=== PATIENT | male | born 1975 | race Caucasian/White ===

== ENCOUNTER 2016-12-17 18:28 | Emergency (ER) | payer BC, OTHER ==
[2016-12-17 19:26] VITALS: BMI 26.7
[2016-12-17 19:49] LABS: AUTOMATED BASOPHIL 0.5 % (0-2); AUTOMATED EOSINOPHIL 0.4 % (0-5); AUTOMATED LYMPH 13.3 % (17-44); AUTOMATED MONOCYTE 16.1 % (3-10); AUTOMATED NEUTROPHIL 69.7 % (45-76); MPV 8.6 fL (7.4-10.4)
[2016-12-17 19:56] LABS: LEUKOCYTES/URINE NEG (NEGATIVE); NITRITE/URINE NEG (NEGATIVE); URINE OCCULT BLOOD NEG (NEG/TRACE); WBC/URINE 0-2 (0-2)
[2016-12-17 20:02] LABS: BLOOD UREA NITROGEN 12 MG/DL (9-20); CALC CORRECTED 9.6 MG/DL (8.4-10.2); CALCIUM 9.4 MG/DL (8.4-10.2); CALCULATED OSMOLALITY 275 MOs/Kg (270-290); CHLORIDE 104 mEq/L (98-107); GLUCOSE 341 MG/DL (70-99); SODIUM LEVEL 136 mEq/L (137-146); TOTAL PROTEIN 7.2 G/DL (6.3-8.2)
[2016-12-17 20:06] LABS: PARTIAL THROMB. TIME 27.5 SEC (22-35); PT-INR 1.1
--- NOTE | 2016-12-17 20:10 | DIRPT ---
CLINICAL DATA: Cough and fever EXAM: CHEST 2 VIEW COMPARISON: May 16, 2015 FINDINGS: There is no edema or consolidation. Heart size and pulmonary vascularity are normal. No adenopathy. No bone lesions. IMPRESSION: No edema or consolidation. Electronically Signed By: Tano Barnes III, M.D. On: 12/17/2016 20:07
--- NOTE | 2016-12-17 20:28 | EDPRACDOC ---
- General Information Chief Complaint: Nausea,Vomiting,Diarrhea Stated Complaint: FEVER Time Seen by Provider: 12/17/16 20:08 Information Source: Patient Mode Of Arrival: Car Home Medications: Home Medications Levothyroxine Sodium [Synthroid] 50 mcg PO QAM 11/03/13 Tacrolimus [Prograf] 3 mg PO QHS 11/03/13 Tacrolimus [Prograf] 4 mg PO QAM 11/03/13 Insulin Glargine,Hum.rec.anlog [Lantus] 8 - 9 units SQ QHS 05/15/15 Insulin Aspart [Novolog] 0 units SQ .SLIDING SCALE PRN 12/17/16 Lipase/Protease/Amylase [Katja Myers 12,000 Units Capsule] 1 cap PO TIDAC 12/17/16 Allergies/Adverse Reactions: Allergies Allergy/AdvReac Type Severity Reaction Status Date / Time codeine Allergy Nausea only Verified 07/27/15 22:30 gatifloxacin [From Tequin] Allergy Unknown Verified 07/27/15 22:30 metoclopramide HCl Allergy See Verified 07/27/15 22:30 [From Reglan] Comments - History of Present Illness Onset: 2 days HPI: PT WITH N/V, X 10, FEVER 102.6 TODAY ABOUT 1730. COUGH PRODUCTIVE. HAD BEEN TAKING TYLENOL. GOT A DOSE OF MOTRIN. H/O KIDNEY/PANCREAS TRANSPLANT DELACRUZ 2002. TOLD TO COME FOR EVAL BY PHARMACY BENEFIT MANAGER. CHEST PAIN WITH COUGH. SOB, DIZZY. Symptoms Occured: Reports: Spontaneous ED Past Medical History - Patient Medical History Psychological History: Denies: Depression Systemic History: Reports: Diabetes Surgical History: Reports: Other (renal/pancreatic transplant 2002) - Social Medical History Smoking Status: Never smoker EDM Review of Systems - Review of Systems ROS Negative Except as Marked: Yes All systems reviewed and were negative except as marked Constitutional: No Symptoms Reported - Physical Exam Constitutional: Alert (Awake), No apparent distress Oriented to: Time, Person, Place Last recorded Vital Signs: Last Vital Signs Temp 100 F 12/17/16 20:08 Pulse 86 12/17/16 20:04 Resp 20 12/17/16 20:04 BP 116/66 12/17/16 20:04 Pulse Ox 95 12/17/16 20:04 Oxygen Pulse Oxygen Saturation 95 O2 Device Room Air Oxygen Flow Rate Fraction of Inspired Oxygen ( FIO2) - HEENT Head: Normal ( normocephalic) Eye Exam: Normal (PERRL, EOMI, Sclera white), Other (LEFT EYE BLIND) Oropharynx: Normal (Pharynx:Moist without exudate,Gums-no swelling) Nose: No Symptoms Reported (septum midline) Neck: Normal (FROM, trachea at midline) - Respiratory/Cardiovascular Respiratory: Normal - CTA (BBS clear to auscultation without adventitious sounds ) Cardiovascular: Normal (RRR without murmur, gallop or rub) - GI Auscultation: Normal (NABS) Palpation: Normal (Soft,No rebound or guarding, non distended) Tenderness: Non tender Venegas's Sign: Negative - Musculoskeletal Back: Normal (Non-Tender) Extremities: Normal (Normal tone, Pulses 2+ No cyanosis or edema, FROM) - Integumentary Skin: Hot, Diaphoretic. negative: Rash, Mottling, Petechiae Lymphatics: Normal (no adenopathy) - Neurologic Memory Impaired: Normal Motor Function: Normal (Normal tone, Pulses 2+ No cyanosis or edema, FROM) Cranial Nerve: Normal (CN II-X11 intact sensation, strength 5/5) Cerebellar: Normal Mood Description: Normal Perception: Normal - Results 12/17/16 19:28 12/17/16 19: WBC 7.0 xk/uL (3.8-10.8) 12/17/16 19: RBC 4.76 xM/uL (4.70-6.10) 12/17/16 19: Hgb 14.7 g/dL (14.0-18.0) 12/17/16 19: Hct 42.9 % (42-52) 12/17/16 19: MCV 90 fL (80-94) 12/17/16 19: MCH 30.9 pg (27-32) 12/17/16 19: MCHC 34.2 g/dl (33-36) 12/17/16 19: RDW 13.0 % (11.5-14.5) 12/17/16 19: Plt Count 296 xk/uL (130-400) 12/17/16 19: MPV 8.6 fL (7.4-10.4) 12/17/16 19: Neut % (Auto) 69.7 % (45-76) 12/17/16 19:28 Lymph % (Auto) 13.3 % (17-44) L 12/17/16 19:28 [place] % (Auto) 16.1 % (3-10) H 12/17/16 19:28 Eos % (Auto) 0.4 % (0-5) 12/17/16 19: Baso % (Auto) 0.5 % (0-2) 12/17/16 19: Absolute Neuts (auto) 4.83 xk/uL (1.7-8.2) 12/17/16 19: Absolute Lymphs (auto) 0.91 xk/uL (0.65-4.75) 12/17/16 19: PT 11.3 SEC (9.2-11.2) H 12/17/16 19: INR 1.1 12/17/16 19:28 APTT 27.5 SEC (22-35) 12/17/16 19:28 Sodium 136 mEq/L (137-146) L 12/17/16 19:28 Potassium 4.0 mEq/L (3.5-5.1) 12/17/16 19: Chloride 104 mEq/L (98-107) 12/17/16 19:28 Carbon Dioxide 17 mMOL/L (22-33) L 12/17/16 19:28 Anion Gap 19 mEq/L (8-16) H 12/17/16 19:28 BUN 12 MG/DL (9-20) 12/17/16 19:28 Creatinine 0.80 MG/DL (0.66-1.25) 12/17/16 19:28 Estimated GFR (MDRD) > 60 mL/min (>=60) 12/17/16 19:28 Glucose 341 MG/DL (70-99) H 12/17/16 19:28 Calculated Osmolality 275 MOs/Kg (270-290) 12/17/16 19:28 Lactic Acid 1.0 mEq/L (0.7-2.1) 12/17/16 19:28 Calcium 9.4 MG/DL (8.4-10.2) 12/17/16 19:28 Corrected Calcium 9.6 MG/DL (8.4-10.2) 12/17/16 19:28 Total Bilirubin 0.4 MG/DL (0.2-1.3) 12/17/16 19:28 AST 33 IU/L (17-59) 12/17/16 19:28 ALT 34 IU/L (21-72) 12/17/16 19:28 Alkaline Phosphatase 93 IU/L (38-126) 12/17/16 19:28 Troponin I < 0.01 ng/mL (<.04) 12/17/16 19:28 Qyc-V-Kfhcbtlwtwa Pept 370 pg/mL (0-450) 12/17/16 19:28 Total Protein 7.2 G/DL (6.3-8.2) 12/17/16 19:28 Albumin 3.8 G/DL (3.5-5.0) 12/17/16 19:28 Urine Color Yellow 12/17/16 19:28 Urine Clarity Clear 12/17/16 19:28 Urine pH 5.0 (5.0-8.0) 12/17/16 19:28 Ur Specific [place] 1.020 (1.003-1.035) 12/17/16 19:28 Urine Protein 1+ (NEG/TRACE) H 12/17/16 19:28 Urine Glucose (UA) 2+ (NEGATIVE) 12/17/16 19:28 Urine Ketones 2+ (NEGATIVE) H 12/17/16 19:28 Urine Occult Blood Neg (NEG/TRACE) 12/17/16 19:28 Urine Nitrite Neg (NEGATIVE) 12/17/16 19:28 Urine Bilirubin Neg (NEGATIVE) 12/17/16 19:28 Urine Urobilinogen <2.0 MG/DL (0-1) 12/17/16 19:28 Ur Leukocyte Esterase Neg (NEGATIVE) 12/17/16 19:28 Urine WBC 0-2 (0-2) 12/17/16 19:28 Urine Mucus Occ (NEG/OCC) 12/17/16 19:28 Lab Results 12/17/16 12/17/16 12/17/16 19:28 19:28 19:28 WBC RBC Hgb Hct MCV MCH MCHC RDW Plt Count MPV Neut % (Auto) Lymph % (Auto) [place] % (Auto) Eos % (Auto) Baso % (Auto) Absolute Neuts (auto) Absolute Lymphs (auto) PT 11.3 H INR 1.1 APTT 27.5 Sodium Potassium Chloride Carbon Dioxide Anion Gap BUN Creatinine Estimated GFR (MDRD) Glucose Calculated Osmolality Lactic Acid 1.0 Calcium Corrected Calcium Total Bilirubin AST ALT Alkaline Phosphatase Troponin I Tea-X-Rllarykwvsy Pept Total Protein Albumin Urine Color Yellow Urine Clarity Clear Urine pH 5.0 Ur Specific [place] 1.020 Urine Protein 1+ H Urine Glucose (UA) 2+ Urine Ketones 2+ H Urine Occult Blood Neg Urine Nitrite Neg Urine Bilirubin Neg Urine Urobilinogen <2.0 Ur Leukocyte Esterase Neg Urine WBC 0-2 Urine Mucus Occ 12/17/16 12/17/16 19:28 19:28 WBC 7.0 RBC 4.76 Hgb 14.7 Hct 42.9 MCV 90 MCH 30.9 MCHC 34.2 RDW 13.0 Plt Count 296 MPV 8.6 Neut % (Auto) 69.7 Lymph % (Auto) 13.3 L [place] % (Auto) 16.1 H Eos % (Auto) 0.4 Baso % (Auto) 0.5 Absolute Neuts (auto) 4.83 Absolute Lymphs (auto) 0.91 PT INR APTT Sodium 136 L Potassium 4.0 Chloride 104 Carbon Dioxide 17 L Anion Gap 19 H BUN 12 Creatinine 0.80 Estimated GFR (MDRD) > 60 Glucose 341 H Calculated Osmolality 275 Lactic Acid Calcium 9.4 Corrected Calcium 9.6 Total Bilirubin 0.4 AST 33 ALT 34 Alkaline Phosphatase 93 Troponin I < 0.01 Plu-M-Twaarwneszz Pept 370 Total Protein 7.2 Albumin 3.8 Urine Color Urine Clarity Urine pH Ur Specific [place] Urine Protein Urine Glucose (UA) Urine Ketones Urine Occult Blood Urine Nitrite Urine Bilirubin Urine Urobilinogen Ur Leukocyte Esterase Urine WBC Urine Mucus Decision Time to Discharge: 21:43 - Departure Yes I personally saw and evaluated the patient. Disposition: Home Condition: Stable Final Diagnosis: Nausea and vomiting, Febrile illness, Influenza-like illness Instructions: Acute Nausea and Vomiting (ED) Education/Counseling Given To: Patient, Family Member Education/Counseling Given Regarding: Diagnosis, Treatment, Follow Up Referrals: Redd Kaufman MD [Primary Care Provider] - 1-2 days Additional Instructions: CMV IGG AND IGM WERE ORDERED BUT WILL NEED TO BE FOLLOWED UP BY YOUR PHARMACY BENEFIT MANAGER OR PCP. RETURN IF SYMPTOMS CHANGE OR WORSEN.
[2016-12-17] MEDS ORDERED: ONDANSETRON HCL 4 MG/2 ML VIAL IV ONE (20:32)
[2016-12-17] MEDS ORDERED: NS 1,000 ML IV ONE (20:32)
[2016-12-17 22:07] VITALS: BP 110/62; PULSE 98; TEMP 98.8
== END 2016-12-17 22:05 | disposition home or self-care (01) ==
LOC: ED 18:28
DX: R11.2 Nausea with vomiting, unspecified (principal); J11.1 Influenza due to unidentified influenza virus with other respiratory manifestations
CPT/HCPCS: 36415; 71020; 80053; 81001; 83605; 83690; 83880; 84484; 85025; 85610; 85730; 86644; 86645; 87040; 87086; 87804; 87880; 96361; 96374; 99284; J2405